=== PATIENT | male | born 1965 | race Caucasian/White ===

== ENCOUNTER 2021-04-23 11:38 | Emergency (ER) | payer OTHER ==
[~2021-04-23] VITALS: Ht 180.3 cm; Wt 127.0 kg
[2021-04-23 11:40] VITALS: BP_SYST 158
--- NOTE | 2021-04-23 11:40 | NUR ---
Patient triaged and placed in waiting room. VSS and patient appears in no acute distress at this time. Accompanied by SELF, awaiting available bed, and MD notified of need for MSE.
--- NOTE | 2021-04-23 13:30 | NUR ---
PT RE-ASSESSED AND BLEEDING IS CONTROLLED. NO CHANGES
[2021-04-23] MEDS ORDERED: DIPH-TET-PERTUS Vaccine 0.5 ML VIAL (ADACEL) I.M. ONE (15:30)
--- NOTE | 2021-04-23 15:30 | NUR ---
DR GOMEZ OUT TO TRIAGE ROOM TO EVALUATE PT.
--- NOTE | 2021-04-23 15:40 | NUR ---
BROUGHT BACK TO [facility], WILL ASSUME CARE
--- NOTE | 2021-04-23 16:12 | NUR ---
Patient given written and verbal discharge instructions and verbalizes understanding. ER MD discussed with patient the results and treatment provided. Patient in stable condition. ID arm band removed. Rx of NONE given. Patient educated on pain management and to follow up with PMD. Pain Scale 0/10. Opportunity for questions provided and answered. Medication side effect fact sheet provided.
== END 2021-04-23 16:12 | disposition home or self-care (01) ==
LOC: SED 11:38
DX: S61.411A Laceration without foreign body of right hand, initial encounter (principal); Z88.5 Allergy status to narcotic agent; W45.8XXA Other foreign body or object entering through skin, initial encounter; Y93.89 Activity, other specified; Y92.89 Other specified places as the place of occurrence of the external cause; Y99.8 Other external cause status
CPT/HCPCS: 99282